=== PATIENT | male | born 1955 | race Caucasian/White ===

== ENCOUNTER 2018-07-24 09:04 | Inpatient (IN) | payer OTHER ==
[~2018-07-24] VITALS: Ht 175.3 cm; Wt 82.1 kg
--- NOTE | ~2018-07-24 | CON ---
[address] [address] CONSULTATION Name: JEFFRY EMMANUEL Room: [address] IN .R.#: [id number] Admission: 07/24/18 Attend Phys: Matthew Alexander Discharge: Date of : 51 Report #: [id number] THIS REPORT FOR: //name// CC: Nazanin Leal DATE OF SERVICE: 07/24/2018 PRIMARY INSOLE REINFORCER: Dr. Cole Montes. CHIEF COMPLAINT: Shortness of breath, tachycardia. HISTORY OF PRESENT ILLNESS: The patient is a 62-year-old male who has been battling an upper respiratory infection over the last week with low-grade fevers and shortness of breath and cough. It is minimally productive. He has an oxygen sat monitor as he has underlying history of COPD and when he checks it on his finger, occasionally his heart rate would raise to 160 and he got worried about this and he went to the Emergency Room at that time. A rhythm strip showed a regular narrow complex tachycardia at a rate of 160-170 beats per minute. It terminated and his underlying heart rhythm has been a sinus rhythm in the 70s. He denies chest pain or palpitations associated with it. He has a history of anterior RI last year. He has been compliant with his medical therapy including Plavix. He has no neuro symptoms of numbness, weakness, visual changes, slurred speech. His blood pressure has been relatively low in the hospital. He has not been eating very much. PAST MEDICAL HISTORY: Anterior STEMI, occluded LAD, status post successful PCI, residual normal LV function, July of last year. He has been on antiplatelet therapy with aspirin and Plavix. He has COPD, oxygen requiring and hyperlipidemia. HOME MEDICATIONS: Include fluticasone, Pulmicort, Singulair, atorvastatin 40 mg daily, Coreg 3.125 mg p.o. b.i.d., prednisone 5 mg p.r.n. and Plavix 75 mg daily. FAMILY HISTORY: Positive for high blood pressure, tobacco use. SOCIAL HISTORY: He is still an active smoker. He does not drink. REVIEW OF SYSTEMS: [place] [address] CONSULTATION Name: JEFFRY EMMANUEL Room: [address] IN [facility]#: [id number] Admission: 07/24/18 Attend Phys: Matthew Alexander Discharge: Date of : 51 Report #: [id number] GASTROINTESTINAL: No nausea or vomiting. HEMATOLOGIC: No anemia or bleeding. RENAL: No history of kidney failure. CARDIOVASCULAR: No chest pain, no palpitations, no orthopnea. Positive dyspnea with exertion. Positive PND. PULMONARY: Positive cough. SKIN: No rashes. GENERAL: Positive fevers, no chills. PHYSICAL EXAMINATION: VITAL SIGNS: Blood pressure is 100/60, sinus rhythm. O2 sat on 2-1/2 liters is 93%. GENERAL: This is an elderly male who is sitting up on the side of the chair. He is alert, in no apparent distress. HEENT: There is no evidence of trauma. Eyes, EOMs intact. There is no facial asymmetry. NECK: Supple. No jugular venous distention. CARDIOVASCULAR: Regular. I could not hear a murmur. LUNGS: Clear to auscultation bilaterally. ABDOMEN: Soft, nontender. EXTREMITIES: No peripheral edema. SKIN: Warm and dry. Electrocardiogram shows sinus rhythm, normal ST segments. There is a rhythm strip from the Emergency Room, which shows a regular tachycardia, has a right axis deviation and a rate of approximately 150 beats per minute. ECG shows normal ST segments. Troponin I is 0.06. ProBNP is 285, creatinine is 1.3, GFR is 56. IMPRESSION AND PLAN: 1. Paroxysmal supraventricular tachycardia. This seems to be related to the respiratory insufficiency, but I think he would benefit from treatment of this as he has underlying chronic lung disease. I started him on digoxin. We will continue with his beta mary ann. 2. Coronary artery disease. This does not appear to be anginal. He will continue with aspirin and Plavix. 3. Respiratory insufficiency, bronchitis. He will continue with antibiotics. We will have him follow up with Dr. Montes' nurse practitioner in a month. By: 1220 1241Tobias Cunningham MD, FACC /nt
[2018-07-24 08:00] VITALS: BP 92/59
[~2018-07-24 09:04] MED LIST: ADVAIR HFA 230M12 GM INH; ALBUTEROL2.5 MG/3 M INH; BROVANA15 MCG/2 M INH; CARVEDILOL3.125 MG PO; CEFUROXIME500 MG PO; CIPROFLOXACIN500 M1 PO; DALIRESP500 MCG PO; DUONEB 2.5-0.5 M3 ML INH; EFFIENT10 MG PO; ELIQUIS5 MG PO; LEVAQUIN 500 M500 M2 PO; LIPITOR40 MG PO; MEDROLDOSEPACK PO; NORCO 5-325 TA1 EACH PO; PACERONE 200 M200 M1 PO; PREDNISONE 10 M10 MG PO; PROAIR HFA8.5 GM INH; PROTONIX40 M1 PO; PULMICORT0.5 MG/22 INH; SINGULAIR 10 MG10 M1 PO; SINGULAIR 10 MG10 MG PO; TUDORZA PRESS400 MCG INH; VENTOLIN HFA 1818 GM INH; VIAGRA100 MG; WELLBUTRIN XL150 MG PO; XANAX 0.25 MG0.25 MG PO
[2018-07-24 09:06] VITALS: BP 107/67
[2018-07-24] MEDS ORDERED: PROAIR HFA8.5 GM INH (09:20)
[2018-07-24] MEDS ORDERED: PLAVIX 75 MG TA75 M1 PO (09:21)
[2018-07-24] MEDS ORDERED: LIPITOR 40 MG T40 M1 PO (09:21)
[2018-07-24 09:41] LABS: ABSOLUTE BASOPHILS 0.1 thou/uL (0.0-0.2); ABSOLUTE EOSINOPHILS 0.1 thou/uL (0.0-0.7); ABSOLUTE LYMPHOCYTES 2.2 thou/uL (0.8-5.3); ABSOLUTE MONOCYTES 1.3 thou/uL (0.0-1.2); ABSOLUTE NEUTROPHILS 12.4 thou/uL (1.6-8.1); BASOPHILS 0.5 %; EOSINOPHILS 0.9 %; HEMATOCRIT 42.8 % (42.0-52.0); HEMOGLOBIN 14.3 gm/dL (14.0-18.0); LYMPHOCYTES 13.5 %; MCH 30.6 pg (26.0-34.0); MCHC 33.3 g/dL (28.0-37.0); MCV 91.8 fL (80.0-100.0); MONOCYTES 8.2 %; MPV 7.4 fl. (7.2-11.1); NUCLEATED RBCS 0 /100WBC; PLATELET COUNT* 378 thou/uL (150-400); POLYS 76.9 %; RBC 4.67 mil/uL (4.50-6.00); RDW-CV 12.8 % (10.5-14.5); WBC 16.2 thou/uL (4.0-11.0)
[2018-07-24 09:49] LABS: INFLUENZA A ANTIGEN None Detected (None Detect); INFLUENZA B ANTIGEN None Detected (None Detect)
[2018-07-24 09:50] LABS: ANION GAP 9 mmol/L (7-16); BUN 11 mg/dL (7-18); CALCIUM 9.2 mg/dL (8.5-10.1); CHLORIDE 100 mmol/L (98-107); CO2 29 mmol/L (21-32); CREATININE 1.3 mg/dL (0.6-1.3); GLUCOSE 215 mg/dL (70-99); POTASSIUM 3.9 mmol/L (3.5-5.1); SODIUM 138 mmol/L (136-145)
[2018-07-24 09:51] LABS: APTT 31.1 Seconds (25.0-31.3); PROTIME 10.6 Seconds (9.20-11.50)
[2018-07-24 10:00] LABS: ALBUMIN 3.5 g/dL (3.4-5.0); ALKALINE PHOSPHATASE 124 U/L (46-116); LIPASE 97 U/L (73-393); MAGNESIUM 2.1 mg/dL (1.8-2.4); NT-PRO BRAIN NAT PEPTIDE 285 pg/mL (<300); SGOT 13 U/L (15-37); SGPT 22 U/L (30-65); TOTAL BILIRUBIN 0.5 mg/dL (<0.1-1.0); TOTAL PROTEIN 7.4 g/dL (6.4-8.2); TROPONIN-I LEVEL <0.06 ng/mL (<0.06)
[2018-07-24 11:00] VITALS: BP 98/66
--- NOTE | 2018-07-24 12:33 | EKG ---
[place] [address] ELECTROCARDIOGRAM REPORT Name: JEFFRY EMMANUEL Room: [address] ADM IN [facility].#: [id number] Admission: 07/24/18 Attend Phys: Matthew Alexander Discharge: Date of : 51 Report #: [id number] THIS REPORT FOR: //name// [facility] ED Test Date: 2018-07-24 Test Time: 09:10:14 Pat Name: JEFFRY EMMANUEL Department: Room: [facility] Gender: M Pocket Machine Operator: : 1955 Requested By: Rudolph Palumbo Order Number: [id number] MD: Tobias Cunningham Measurements Intervals [place] Rate: 170 P: 117 [place]: 87 QRS: 0 QRSD: 100 T: 65 QT: 277 QTc: 466 Interpretive Statements Supraventricular tachycardia Indeterminate axis ST depression, probably rate related Compared to ECG 01/04/2017 02:28:16 Indeterminate axis now present ST (T wave) deviation now present Sinus rhythm no longer present Myocardial infarct finding no longer present Electronically Signed On 07-24-2018 12:32:53 HOTEL CLERK by Tobias Cunningham [email or web address] <ELECTRONICALLY SIGNED> By: Tobias Cunningham MD, FACC 07/24/18 1232 0910 0910 Tobias Cunningham MD, FACC /EPI
--- NOTE | 2018-07-24 12:34 | EKG ---
[place] [address] ELECTROCARDIOGRAM REPORT Name: JEFFRY EMMANUEL Room: [address] ADM IN [facility].#: [id number] Admission: 07/24/18 Attend Phys: Matthew Alexander Discharge: Date of : 51 Report #: [id number] THIS REPORT FOR: //name// [facility] ED Test Date: 2018-07-24 Test Time: 09:25:18 Pat Name: JEFFRY EMMANUEL Department: Room: [facility] Gender: Network Consultant: Suellen VANEGAS : 1955 Requested By: Rudolph Palumbo Order Number: [id number] MD: Tobias Cunningham Measurements Intervals [place] Rate: 96 P: 57 [place]: 155 QRS: 75 QRSD: 75 T: 84 QT: 310 QTc: 392 Interpretive Statements Sinus rhythm Nonspecific repol abnormality, lateral leads Compared to ECG 01/04/2017 02:28:16 Myocardial infarct finding no longer present Electronically Signed On 07-24-2018 12:33:52 FIRE DISPATCHER by Tobias Cunningham [email or web address] <ELECTRONICALLY SIGNED> By: Tobias Cunningham MD, FAC 07/24/18 1233 0925 Tobias Cunningham MD, [facility] /EPI
[2018-07-24 16:09] VITALS: BP 116/58
[2018-07-24 20:00] VITALS: BP 121/63
[2018-07-25] VITALS: BP 129/57
[2018-07-25 04:00] VITALS: BP 117/57
[2018-07-25 07:48] VITALS: BP 123/60
--- NOTE | 2018-07-25 11:27 | 2DMMODE ---
[place] [address] 2 D/M-MODE ECHOCARDIOGRAM Name: JEFFRY EMMANUEL Room: [address] IN [facility]#: [id number] Admission: 07/24/18 Attend Phys: Ector Leal Discharge: Date of : 51 Date of Service: 07/25/18 1126 Report #: [id number] THIS REPORT FOR: //name// APPROVED REPORT Study performed: 07/24/2018 13:29:13 EXAM: Comprehensive 2D, Doppler, and color-flow Echocardiogram Patient Location: In-Patient Room #: [facility] Status: routine BSA: 2.00 HR: 82 bpm BP: 98/66 mmHg Rhythm: NSR Other Information Study Quality: Good Indications COPD Atrial Fibrillation 2D Dimensions IVSd: 10.86 (7-11mm) LVOT Diam: 20.95 (18-24mm) LVDd: 43.80 mm PWd: 8.00 (7-11mm) Ascending Ao: 35.16 (22-36mm) LVDs: 26.24 (25-40mm) Aortic Root: 36.74 mm Volumes Left Atrial Volume (Systole) LA ESV Index: 19.80 mL/m2 Aortic Valve AoV Peak Tamir.: 1.41 m/s AO Peak Gr.: 7.97 mmHg LVOT Max P.63 mmHg AO Mean Gr.: 4.65 mmHg LVOT Mean P.06 mmHg LVOT Max V: 1.38 m/s AO V2 VTI: 26.30 cm LVOT Mean V: 0.78 m/s MARCOS (VTI): 3.24 cm2 LVOT V1 VTI: 24.71 cm Mitral Valve E/A Ratio: 1.64 MV Decel. Time: 211.34 [place] [address] 2 D/M-MODE ECHOCARDIOGRAM Name: JEFFRY EMMANUEL Room: [address] IN [facility]#: [id number] Admission: 07/24/18 Attend Phys: Ector Leal Discharge: Date of : 51 Date of Service: 07/25/18 1126 Report #: [id number] MV E Max Tamir.: 0.74 m/s MV PHT: 61.29 ms MVA (PHT): 3.59 cm2 TDI E/Lateral E': 6.17 E/Medial E': 7.40 Medial E' Tamir.: 0.10 m/s Lateral E' Tamir.: 0.12 m/s Pulmonary Valve PV Peak Tamir.: 1.13 m/s PV Peak Gr.: 5.14 mmHg Tricuspid Valve RAP Estimate: 5.00 mmHg TR Peak Gr.: 23.90 mmHg RVSP: 29.00 mmHg PA Pressure: 29.00 mmHg Left Ventricle The left ventricle is normal size. There is normal LV segmental wall motion. There is normal left ventricular wall thickness. Left ventricular systolic function is normal. The left ventricular ejection fraction is within the normal range. LVEF is 60-65%. The left ventricular diastolic function is normal. Right Ventricle The right ventricle is normal size. The right ventricular systolic function is normal. Atria The left atrium size is normal. The right atrium size is normal. Aortic Valve The aortic valve is normal in structure. No aortic regurgitation is present. There is no aortic valvular stenosis. Mitral Valve The mitral valve is normal in structure. Trace mitral regurgitation. No evidence of mitral valve stenosis. Tricuspid Valve The tricuspid valve is normal in structure. Trace tricuspid regurgitation. No pulmonary hypertension. Pulmonic Valve The pulmonary valve is normal in structure. [place] [address] 2 D/M-MODE ECHOCARDIOGRAM Name: JEFFRY EMMANUEL Room: [address]#: [id number] Admission: 07/24/18 Attend Phys: Ector Leal Discharge: Date of : 51 Date of Service: 07/25/18 1126 Report #: [id number] valvular regurgitation. Great Vessels The aortic root is normal in size. IVC is normal in size and collapses >50% with inspiration. Pericardium There is no pericardial effusion. <Conclusion> LVEF is 60-65%. There is normal LV segmental wall motion. There is no aortic valvular stenosis. No aortic regurgitation is present. Trace tricuspid regurgitation. No pulmonary hypertension. <ELECTRONICALLY SIGNED> By: Tobias Cunningham MD, FACC 07/25/18 1126 1126 25 Tobias Cunningham MD, FACC /INF
[2018-07-25 12:11] VITALS: BP 121/56
[2018-07-25 16:00] VITALS: BP 113/64
[2018-07-25 20:00] VITALS: BP 134/65
[2018-07-26] VITALS: BP 120/61
[2018-07-26 04:00] VITALS: BP 115/67
[2018-07-26 07:52] VITALS: BP 124/54
[2018-07-26 12:00] VITALS: BP 123/59
[2018-07-26 16:00] VITALS: BP 120/53
[2018-07-26 20:00] VITALS: BP 139/68
[2018-07-27 00:25] VITALS: BP 129/60
[2018-07-27 04:57] VITALS: BP 120/39
[2018-07-27 08:15] VITALS: BP 128/67
[2018-07-27 12:00] VITALS: BP 126/72
[2018-07-27] MEDS ORDERED: DIGOXIN125 MCG PO (14:07)
[2018-07-27] MEDS ORDERED: PREDNISONE 10 M10 MG PO (14:09)
[2018-07-27 14:14] VITALS: BP 126/72
== END 2018-07-27 16:32 | disposition home or self-care (01) | DRG 871 ==
LOC: M.ERS 09:04 → M.TBA-ER 10:01 → M.2W 10:01
PROVIDERS: Family Medicine; ADMIT Internal Medicine
DX: A41.9 Sepsis, unspecified organism (principal); J96.21 Acute and chronic respiratory failure with hypoxia; J44.1 Chronic obstructive pulmonary disease with (acute) exacerbation; I47.1 Supraventricular tachycardia; J44.0 Chronic obstructive pulmonary disease with (acute) lower respiratory infection; J20.9 Acute bronchitis, unspecified; I95.89 Other hypotension; I48.91 Unspecified atrial fibrillation; E78.5 Hyperlipidemia, unspecified; I25.10 Atherosclerotic heart disease of native coronary artery without angina pectoris; Z79.82 Long term (current) use of aspirin; I25.2 Old myocardial infarction; Z79.899 Other long term (current) drug therapy; Z87.891 Personal history of nicotine dependence

== ENCOUNTER 2018-08-25 07:04 | Inpatient (IN) | payer OTHER ==
[~2018-08-25] VITALS: Ht 175.3 cm; Wt 83.9 kg
[~2018-08-25 07:04] MED LIST changes: +DIGOXIN125 MCG PO; +LIPITOR 40 MG T40 M1 PO; +PLAVIX 75 MG TA75 M1 PO
[2018-08-25 07:10] VITALS: BP 131/89
[2018-08-25] MEDS ORDERED: ASPIR 8181 MG PO (07:20)
[2018-08-25] MEDS ORDERED: NITROGLYCERIN0.4 MG SUBLING (07:21)
[2018-08-25 07:31] LABS: ABSOLUTE BASOPHILS 0.1 thou/uL (0.0-0.2); ABSOLUTE EOSINOPHILS 0.3 thou/uL (0.0-0.7); ABSOLUTE LYMPHOCYTES 4.2 thou/uL (0.8-5.3); ABSOLUTE NEUTROPHILS 6.3 thou/uL (1.6-8.1); BASOPHILS 0.9 %; EOSINOPHILS 2.4 %; HEMATOCRIT 42.8 % (42.0-52.0); HEMOGLOBIN 14.7 gm/dL (14.0-18.0); LYMPHOCYTES 35.3 %; MCH 31.5 pg (26.0-34.0); MCHC 34.3 g/dL (28.0-37.0); MCV 91.8 fL (80.0-100.0); MONOCYTES 8.2 %; MPV 7.3 fl. (7.2-11.1); NUCLEATED RBCS 0 /100WBC; PLATELET COUNT* 373 thou/uL (150-400); POLYS 53.2 %; RBC 4.66 mil/uL (4.50-6.00); RDW-CV 13.1 % (10.5-14.5); WBC 11.9 thou/uL (4.0-11.0)
[2018-08-25 07:40] LABS: ANION GAP 9 mmol/L (7-16); BUN 9 mg/dL (7-18); CHLORIDE 103 mmol/L (98-107); CO2 30 mmol/L (21-32); CREATININE 1.2 mg/dL (0.6-1.3); GLUCOSE 151 mg/dL (70-99); POTASSIUM 3.7 mmol/L (3.5-5.1); SODIUM 142 mmol/L (136-145)
[2018-08-25 07:45] LABS: APTT 27.7 Seconds (25.0-31.3)
[2018-08-25 07:59] LABS: ALBUMIN 3.7 g/dL (3.4-5.0); ALKALINE PHOSPHATASE 143 U/L (46-116); CK-MB MASS 0.9 ng/mL (<0.5-3.6); LIPASE 128 U/L (73-393); NT-PRO BRAIN NAT PEPTIDE 347 pg/mL (<300); SGOT 17 U/L (15-37); SGPT 34 U/L (30-65); TOTAL BILIRUBIN 0.4 mg/dL (<0.1-1.0); TOTAL PROTEIN 7.6 g/dL (6.4-8.2); TROPONIN-I LEVEL <0.06 ng/mL (<0.06)
[2018-08-25 12:14] VITALS: BP 130/72
[2018-08-25 12:30] VITALS: BP 133/74
[2018-08-25 16:00] VITALS: BP 109/50
[2018-08-25 20:00] VITALS: BP 125/65
[2018-08-26 00:06] VITALS: BP 110/57
[2018-08-26 04:37] VITALS: BP 124/76
[2018-08-26 05:46] LABS: HEMATOCRIT 37.6 % (42.0-52.0); MCH 30.6 pg (26.0-34.0); MCV 92.7 fL (80.0-100.0); MPV 7.6 fl. (7.2-11.1); NUCLEATED RBCS 0 /100WBC; PLATELET COUNT* 350 thou/uL (150-400); RBC 4.05 mil/uL (4.50-6.00); RDW-CV 13.4 % (10.5-14.5); WBC 17.3 thou/uL (4.0-11.0)
[2018-08-26 05:57] LABS: ANION GAP 8 mmol/L (7-16); BUN 18 mg/dL (7-18); CALCIUM 9.3 mg/dL (8.5-10.1); CHLORIDE 102 mmol/L (98-107); CO2 27 mmol/L (21-32); CREATININE 1.1 mg/dL (0.6-1.3); GLUCOSE 247 mg/dL (70-99); POTASSIUM 4.4 mmol/L (3.5-5.1); SODIUM 137 mmol/L (136-145); TROPONIN-I LEVEL <0.06 ng/mL (<0.06)
[2018-08-26 06:59] LABS: HEMOGLOBIN 12.4 gm/dL (14.0-18.0)
[2018-08-26 08:00] VITALS: BP 111/56
--- NOTE | 2018-08-26 09:00 | CON ---
[address] [address] CONSULTATION Name: JEFFRY EMMANUEL Room: [address] IN .R.#: [id number] Admission: 08/25/18 Attend Phys: Edis Torres MD Discharge: Date of : 51 Report #: [id number] THIS REPORT FOR: //name// CC: Edis Cates MD DATE OF SERVICE: 08/25/2018 CARDIOLOGY CONSULTATION INDICATION: Recurrent supraventricular tachycardia. HISTORY OF PRESENT ILLNESS: The patient is a very pleasant 62-year-old gentleman with chronic obstructive pulmonary disease. He was admitted to the hospital with recurrent tachycardia. EKG appears to show a supraventricular tachycardia at a rate of 160 beats per minute. The patient converted in the Emergency Room after having the arrhythmia for several hours. He feels the fast pulse rate, but denies any significant chest pain. He has chronic shortness of breath. He is not having orthopnea or paroxysmal nocturnal dyspnea. At the time of my interview, he is in sinus rhythm and without cardiac complaint. He has a history of coronary artery disease with previous anterior [place] in the past, status post intervention. PAST MEDICAL HISTORY: 1. Coronary artery disease with percutaneous coronary intervention to an acutely occluded LAD last year. 2. Normal LV function by echocardiogram. 3. COPD. 4. Recurrent supraventricular tachycardia. 5. Hyperlipidemia. HOME MEDICATIONS: Fluticasone, Pulmicort, Singulair, atorvastatin, Coreg, prednisone and Plavix. FAMILY HISTORY: Positive for hypertension. SOCIAL HISTORY: The patient smokes. He does not drink alcohol. PHYSICAL EXAMINATION: VITAL SIGNS: Stable, blood pressure 133/74, pulse currently 71 and regular. GENERAL: This is a pleasant gentleman who is in no distress. Mood and affect appropriate. HEENT: Extraocular muscles intact. Mucous [place] [address] CONSULTATION Name: JEFFRY EMMANUEL Jayleen Room: [address]#: [id number] Admission: 08/25/18 Attend Phys: Edis Torres MD Discharge: Date of : 51 Report #: [id number] NECK: Shows no jugular venous distention. I do not appreciate carotid bruit. CHEST: Reveals diffusely diminished breath sounds with prolonged expiration. I do not appreciate wheezes or rales. CARDIOVASCULAR: Reveals a regular rhythm with normal S1 and S2. I do not appreciate gallop or murmur. ABDOMEN: Reveals normal bowel sounds. The abdomen is soft, nontender. EXTREMITIES: Shows no edema. Peripheral pulses 2+ and palpable. SKIN: Warm and dry. LABORATORY DATA: EKG shows a narrow complex tachycardia at a rate of 160 beats per minute. Troponin is less than 0.06. IMPRESSION AND RECOMMENDATIONS: 1. Recurrent paroxysmal supraventricular tachycardia. At this point in time, I would start an antiarrhythmic in the form of sotalol 80 mg twice daily. We will discontinue carvedilol. We will check EKG in a.m. 2. Coronary artery disease, presently stable. Continue aspirin and Plavix. 3. Chronic obstructive pulmonary disease per primary physicians. 4. Hyperlipidemia. Continue atorvastatin at current dose. <ELECTRONICALLY SIGNED> By: Moncho Shrestha MD, FACC 08/26/18 0900 1337 1619Micjames Shrestha MD, FACC /nt
[2018-08-26 09:22] LABS: ABSOLUTE LYMPHOCYTES 2.1 thou/uL (0.8-5.3); ABSOLUTE MONOCYTES 0.3 thou/uL (0.0-1.2); ABSOLUTE NEUTROPHILS 14.9 thou/uL (1.6-8.1); PLATELET ESTIMATE ADEQUATE
--- NOTE | 2018-08-26 11:25 | EKG ---
[place] [address] ELECTROCARDIOGRAM REPORT Name: JEFFRY EMMANUEL Room: [address] ADM IN [facility].#: [id number] Admission: 08/25/18 Attend Phys: Edis Torres MD Discharge: Date of : 51 Report #: [id number] THIS REPORT FOR: //name// [facility] ED Test Date: 2018-08-25 Test Time: 07:09:58 Pat Name: JEFFRY EMMANUEL Department: Room: [address] Gender: M Machine Operator Picker: Mark JACOME : 1955 Requested By: Edis Torres Order Number: [id number] Nataly MD: Philip Kat Measurements Intervals [place] Rate: 167 P: AR: QRS: -1 QRSD: 98 T: -64 QT: 282 QTc: 471 Interpretive Statements supraventricular tachycardia septal infarct, old Repolarization abnormality, prob rate related Compared to ECG 07/24/2018 09:25:18 Sinus rhythm no longer present Electronically Signed On 08-26-2018 11:25:42 VACUUM DRIER OPERATOR by Philip Kat [email or web address] <ELECTRONICALLY SIGNED> By: Philip Kat MD, FACC 08/26/18 1125 0709 0709 Philip Kat MD, FAC /EPI
--- NOTE | 2018-08-26 11:26 | EKG ---
[place] [address] ELECTROCARDIOGRAM REPORT Name: JEFFRY EMMANUEL Room: [address] ADM IN [facility]#: [id number] Admission: 08/25/18 Attend Phys: Edis Torres MD Discharge: Date of : 51 Report #: [id number] THIS REPORT FOR: //name// [facility] ED Test Date: 2018-08-25 Test Time: 07:31:22 Pat Name: JEFFRY EMMANUEL Department: Room: [facility] Gender: M Paper Supervisor: Mark JACOME : 1955 Requested By: Rudolph Palumbo Order Number: [id number] MD: Philip Kat Measurements Intervals [place] Rate: 74 P: 49 [place]: 153 QRS: 77 QRSD: 80 T: 72 QT: 372 QTc: 413 Interpretive Statements Sinus rhythm septal infarct, old Borderline ST depression, lateral leads baseline wander Electronically Signed On 08-26-2018 11:26:30 CARPENTER AND JOINER by Philip Kat [email or web address] <ELECTRONICALLY SIGNED> By: Philip Kat MD, [facility] 08/26/18 1126 0 0 Philip Kat MD, FACC /EPI
--- NOTE | 2018-08-26 11:38 | EKG ---
[place] [address] ELECTROCARDIOGRAM REPORT Name: JEFFRY EMMANUEL Room: [address] ADM IN .R.#: [id number] Admission: 08/25/18 Attend Phys: Edis Torres MD Discharge: Date of : 51 Report #: [id number] THIS REPORT FOR: //name// [facility] Test Date: 2018-08-26 Test Time: 08:42:47 Pat Name: JEFFRY EMMANUEL Department: Room: [address] Gender: M Assistant Scientist: : 1955 Requested By: Moncho Shrestha Order Number: [id number] Reading MD: Philip Kat Measurements Intervals [place] Rate: 62 P: 51 [place]: 153 QRS: 76 QRSD: 77 T: 76 QT: 394 QTc: 400 Interpretive Statements Sinus rhythm Borderline T abnormalities, lateral leads Baseline wander in lead(s) V3 Electronically Signed On 08-26-2018 11:38:38 PLANT CLERK by Philip Kat [email or web address] <ELECTRONICALLY SIGNED> By: Philip Kat MD, [facility] 08/26/18 1138 D: 12/841 1 Philip Kat MD, FACC /EPI
[2018-08-26 12:09] VITALS: BP 126/72
[2018-08-26] MEDS ORDERED: FLECAINIDE ACET50 M2 PO (12:45)
[2018-08-26 12:47] VITALS: BP 126/72
== END 2018-08-26 15:00 | disposition still patient (30) | DRG 309 ==
LOC: M.ERS 07:04 → M.TBA-ER 09:29 → M.2W 09:29
PROVIDERS: Family Medicine; ADMIT Internal Medicine
DX: I47.1 Supraventricular tachycardia (principal); J96.10 Chronic respiratory failure, unspecified whether with hypoxia or hypercapnia; I50.32 Chronic diastolic (congestive) heart failure; I48.91 Unspecified atrial fibrillation; J44.9 Chronic obstructive pulmonary disease, unspecified; I25.10 Atherosclerotic heart disease of native coronary artery without angina pectoris; E78.5 Hyperlipidemia, unspecified; Z99.81 Dependence on supplemental oxygen; Z79.82 Long term (current) use of aspirin; Z95.5 Presence of coronary angioplasty implant and graft; Z79.899 Other long term (current) drug therapy; Z87.891 Personal history of nicotine dependence